=== PATIENT | female | born 1970 | race Caucasian/White ===

== ENCOUNTER 2016-10-26 08:49 | Emergency (ER) | payer MEDICAID, OTHER ==
[~2016-10-26] VITALS: Ht 165.1 cm; Wt 75.0 kg
[2016-10-26 08:51] VITALS: Ht 165.1 cm; Wt 75.0 kg
[2016-10-26] MEDS ORDERED: SOD CHLORIDE 0.9% 1,000 ML IV STA (09:01)
[2016-10-26 09:28] LABS: ADD SCAN DIFF NO
[2016-10-26] MEDS ORDERED: morphine 2 MG INJ IV ONE (09:30)
[2016-10-26] MEDS ORDERED: ONDANSETRON 4 MG INJ IV ONE (09:30)
[2016-10-26 09:31] LABS: BASOPHIL # 0.1 10^3/ul (0.0-0.1); BASOPHILS % 0.6 % (0.0-2.0); EOSINOPHILS # 0.1 10^3/ul (0.0-0.5); EOSINOPHILS % 0.9 % (0.0-7.0); HEMATOCRIT 39.8 % (37.0-47.0); HEMOGLOBIN 12.7 g/dl (12.0-16.0); LYMPHOCYTES # 2.4 10^3/ul (0.8-2.9); LYMPHOCYTES % 28.6 % (15.0-51.0); MEAN CORPUSCULAR HEMOGLOBIN 27.6 pg (29.0-33.0); MEAN CORPUSCULAR HGB CONC 31.9 g/dl (32.0-37.0); MEAN CORPUSCULAR VOLUME 86.5 fl (82.0-101.0); MEAN PLATELET VOLUME 10.6 fl (7.4-10.4); MONOCYTE # 0.8 10^3/ul (0.3-0.9); MONOCYTES % 9.2 % (0.0-11.0); NEUTROPHIL # 5.2 10^3/ul (1.6-7.5); NEUTROPHILS % 60.5 % (39.0-77.0); PLATELET COUNT 322 10^3/UL (140-415); RED CELL DISTRIBUTION WIDTH 13.4 % (11.5-14.5); WHITE BLOOD COUNT 8.5 10^3/ul (4.8-10.8)
[2016-10-26 10:05] LABS: INR 0.92; PROTIME 12.4 Sec (12.2-14.2)
[2016-10-26 10:06] LABS: PARTIAL THROMBOPLASTIN TIME 26.5 Sec (25.0-35.0)
[2016-10-26 10:12] LABS: ALBUMIN 4.8 g/dl (3.3-4.9); BILIRUBIN,INDIRECT 0.2 mg/dl (0-1.1); BILIRUBIN,TOTAL 0.2 mg/dl (0.2-1.3); CALCIUM 9.5 mg/dl (8.4-10.2); CREATININE 0.73 mg/dl (0.44-1.00); POTASSIUM 4.1 mmol/L (3.5-5.1); TOTAL PROTEIN 7.3 g/dl (6.1-8.1)
[2016-10-26] MEDS ORDERED: IOHEXOL 300MG/ML 150 ML BTL ONE (10:26)
[2016-10-26] MEDS ORDERED: SOD CHLORIDE 0.9% 100 ML ONE (10:26)
[2016-10-26 10:30] LABS: OPIATES Positive (NEGATIVE)
[2016-10-26 10:36] LABS: BARBITURATES Negative (NEGATIVE); BENZODIAZEPINES Negative (NEGATIVE); CANNABINOIDS Negative (NEGATIVE); COCAINE Negative (NEGATIVE)
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
[2016-10-26] MEDS ORDERED: morphine 4 MG/ML VIAL IV STA (12:13)
[2016-10-26] MEDS ORDERED: HYDR-902 PO (12:15)
[2016-10-26] MEDS ORDERED: IBUP-1542 PO (12:15)
[2016-10-26 13:03] VITALS: BP 111/67; PULSE 67; RESP 16
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
== END 2016-10-26 13:50 | disposition home or self-care (01) ==
LOC: E/R 08:49
DX: S39.91XA Unspecified injury of abdomen, initial encounter (principal); R40.2252 Coma scale, best verbal response, oriented, at arrival to emergency department; S29.001A Unspecified injury of muscle and tendon of front wall of thorax, initial encounter; R07.9 Chest pain, unspecified; R51 Headache; R40.2142 Coma scale, eyes open, spontaneous, at arrival to emergency department; R40.2362 Coma scale, best motor response, obeys commands, at arrival to emergency department; V49.40XA Driver injured in collision with unspecified motor vehicles in traffic accident, initial encounter
CPT/HCPCS: 70450; 71260; 72125; 74177; 80048; 80076; 80307; 85025; 85610; 85730; J2270; J2405; J7030; Q9967; Z7610; 96374; 96375; 96376